=== PATIENT | female | born 1960 | race Caucasian/White ===

== ENCOUNTER 2018-09-29 08:50 | Day surgery (SDC) | payer OTHER ==
[2018-09-29] MEDS: LACTATED RINGER'S 1,000 ML IV (10:27)
[2018-09-29] MEDS: hydrALAzine 20 MG INJ IV (10:27)
[2018-09-29] MEDS ORDERED: MIDAZOLAM 1 MG/ML 2 ML INJ (11:54)
[2018-09-29] MEDS ORDERED: FENTAnyl 50 MCG/ML VIAL (11:54)
[2018-09-29] MEDS ORDERED: PROPOFOL 0 ML (11:54)
[2018-09-29] MEDS ORDERED: CEFAZOLIN 1 GM INJ (12:04)
[2018-09-29] MEDS: BUPIVACAINE 0.25% (MPF) 30 ML INJ (12:05)
[2018-09-29] MEDS: LIDOCAINE 1% (MPF) 30 ML INJ (12:05)
[2018-09-29] MEDS ORDERED: OXYCODONE/ACETAMINOPHEN (5/325) TAB PO ×2 (12:30)
[2018-09-29] MEDS ORDERED: MEPERIDINE 25 MG INJ IV (12:30)
[2018-09-29] MEDS ORDERED: ONDANSETRON 4 MG INJ IV (12:30)
[2018-09-29] MEDS ORDERED: FENTAnyl 50 MCG/ML VIAL IV ×3 (12:30)
[2018-09-29] MEDS ORDERED: EPHEDrine 25 MG/5 ML SYG IV (12:30)
[2018-09-29] MEDS ORDERED: DIPHENHYDRAMINE 50 MG INJ IV (12:30)
[2018-09-29] MEDS ORDERED: LABETALOL HCL 20MG INJ IV (12:30)
[2018-09-29] MEDS ORDERED: hydrALAzine 20 MG INJ IV (12:30)
[2018-09-29] MEDS ORDERED: METOCLOPRAMIDE 10 MG INJ IV (12:30)
[2018-09-29] MEDS ORDERED: MIDAZOLAM 1 MG/ML 2 ML INJ IV (12:30)
[2018-09-29] MEDS: CEFAZOLIN 2 GM/50 ML (PMX) 50 ML IVPB (13:05)
== END 2018-09-29 14:04 | disposition home or self-care (01) ==
LOC: SDS 08:50
DX: G56.01 Carpal tunnel syndrome, right upper limb (principal); I10 Essential (primary) hypertension; E03.9 Hypothyroidism, unspecified; E78.5 Hyperlipidemia, unspecified; Z79.82 Long term (current) use of aspirin
CPT/HCPCS: 64721